=== PATIENT | female | born 1970 | race Caucasian/White ===

== ENCOUNTER → 2019-10-26 08:51 | Outpatient (BNVA) | payer MEDICARE, MEDICAID, SELFPAY | PROVIDERS: Family Provider Family Medicine; PCP Family Medicine; Visit Provider Anesthesiology | DX: G89.29 Other chronic pain (principal); M54.5 Low back pain; M25.511 Pain in right shoulder; M25.512 Pain in left shoulder; F17.210 Nicotine dependence, cigarettes, uncomplicated; Z79.891 Long term (current) use of opiate analgesic | CPT/HCPCS: 99214 ==

== ENCOUNTER → 2020-02-26 13:27 | Outpatient (BNVA) | payer MEDICARE, MEDICAID, SELFPAY | PROVIDERS: Family Provider Family Medicine; PCP Family Medicine; Visit Provider Anesthesiology | DX: G89.29 Other chronic pain (principal); M54.5 Low back pain; F17.210 Nicotine dependence, cigarettes, uncomplicated; Z79.891 Long term (current) use of opiate analgesic; Z71.6 Tobacco abuse counseling | CPT/HCPCS: 99214 ==

== ENCOUNTER → 2020-04-16 10:22 | Outpatient (BNVA) | payer MEDICARE, MEDICAID, SELFPAY | PROVIDERS: Family Provider Family Medicine; PCP Family Medicine; Visit Provider Nurse Practitioner | DX: G89.29 Other chronic pain (principal); M54.41 Lumbago with sciatica, right side; M54.42 Lumbago with sciatica, left side; F17.210 Nicotine dependence, cigarettes, uncomplicated; Z79.891 Long term (current) use of opiate analgesic; Z71.6 Tobacco abuse counseling | CPT/HCPCS: 99213 ==

== ENCOUNTER → 2020-06-27 09:13 | Outpatient (BNVA) | payer MEDICARE, MEDICAID, SELFPAY | PROVIDERS: Family Provider Family Medicine; PCP Family Medicine; Visit Provider Nurse Practitioner | DX: G89.29 Other chronic pain (principal); M54.42 Lumbago with sciatica, left side; M54.41 Lumbago with sciatica, right side; F17.210 Nicotine dependence, cigarettes, uncomplicated; Z79.891 Long term (current) use of opiate analgesic; Z71.6 Tobacco abuse counseling | CPT/HCPCS: 99213 ==

== ENCOUNTER → 2020-08-26 13:35 | Outpatient (BNVA) | payer MEDICARE, MEDICAID, SELFPAY | PROVIDERS: Family Provider Family Medicine; PCP Family Medicine; Visit Provider Anesthesiology | DX: G89.29 Other chronic pain (principal); M54.5 Low back pain; F17.210 Nicotine dependence, cigarettes, uncomplicated; Z79.891 Long term (current) use of opiate analgesic; Z71.6 Tobacco abuse counseling | CPT/HCPCS: 99213; 99214 ==

== ENCOUNTER → 2020-10-23 13:48 | Outpatient (BNVA) | payer MEDICARE, MEDICAID, SELFPAY | PROVIDERS: Family Provider Family Medicine; PCP Family Medicine; Visit Provider Nurse Practitioner | DX: G89.29 Other chronic pain (principal); M54.5 Low back pain; F17.210 Nicotine dependence, cigarettes, uncomplicated; Z79.891 Long term (current) use of opiate analgesic; Z71.6 Tobacco abuse counseling | CPT/HCPCS: 99212; 99214 ==

== ENCOUNTER → 2020-12-26 13:17 | Outpatient (BNVA) | payer MEDICARE, MEDICAID, SELFPAY | PROVIDERS: Family Provider Family Medicine; PCP Family Medicine; Visit Provider Anesthesiology | DX: G89.29 Other chronic pain (principal); M54.5 Low back pain; F17.210 Nicotine dependence, cigarettes, uncomplicated; Z79.891 Long term (current) use of opiate analgesic | CPT/HCPCS: 99213 ==

== ENCOUNTER → 2021-02-25 11:12 | Outpatient (BNVA) | payer MEDICARE, MEDICAID, SELFPAY | PROVIDERS: Family Provider Family Medicine; PCP Family Medicine; Visit Provider Anesthesiology | DX: G89.29 Other chronic pain (principal); M54.5 Low back pain; F17.210 Nicotine dependence, cigarettes, uncomplicated; Z79.891 Long term (current) use of opiate analgesic | CPT/HCPCS: 99213 ==

== ENCOUNTER → 2021-04-28 13:21 | Outpatient (BNVA) | payer MEDICARE, MEDICAID, SELFPAY | PROVIDERS: Family Provider Family Medicine; PCP Family Medicine; Visit Provider Nurse Practitioner | DX: G89.29 Other chronic pain (principal); M54.5 Low back pain; F17.210 Nicotine dependence, cigarettes, uncomplicated; Z79.891 Long term (current) use of opiate analgesic; Z71.6 Tobacco abuse counseling | CPT/HCPCS: 99213 ==

== ENCOUNTER → 2021-06-26 12:47 | Outpatient (BNVA) | payer MEDICARE, MEDICAID, SELFPAY | PROVIDERS: Family Provider Family Medicine; PCP Family Medicine; Visit Provider Nurse Practitioner | DX: G89.29 Other chronic pain (principal); M54.50 Low back pain, unspecified; F17.210 Nicotine dependence, cigarettes, uncomplicated; Z79.891 Long term (current) use of opiate analgesic; Z71.6 Tobacco abuse counseling | CPT/HCPCS: 99213; 99214 ==

== ENCOUNTER → 2021-08-27 12:46 | Outpatient (BNVA) | payer MEDICARE, MEDICAID, SELFPAY | PROVIDERS: Family Provider Family Medicine; PCP Family Medicine; Visit Provider Anesthesiology | DX: Z02.89 Encounter for other administrative examinations (principal); G89.29 Other chronic pain; M54.50 Low back pain, unspecified; F17.200 Nicotine dependence, unspecified, uncomplicated; Z79.891 Long term (current) use of opiate analgesic | CPT/HCPCS: 99213 ==

== ENCOUNTER → 2021-11-03 12:49 | Outpatient (BNVA) | payer MEDICARE, MEDICAID, SELFPAY | PROVIDERS: Family Provider Family Medicine; PCP Family Medicine; Visit Provider Anesthesiology | DX: G89.29 Other chronic pain (principal); M54.50 Low back pain, unspecified; F17.210 Nicotine dependence, cigarettes, uncomplicated; Z79.891 Long term (current) use of opiate analgesic | CPT/HCPCS: 99213 ==

== ENCOUNTER → 2021-11-17 14:50 | Outpatient (BNVA) | payer MEDICARE, MEDICAID, SELFPAY | PROVIDERS: Family Provider Family Medicine; PCP Family Medicine; Visit Provider Nurse Practitioner Family | DX: Z20.822 Contact with and (suspected) exposure to COVID-19 (principal) | CPT/HCPCS: 87426 ==

== ENCOUNTER 2022-02-18 13:19 | Outpatient (CLI) | payer MEDICARE, MEDICAID, SELFPAY ==
--- NOTE | 2022-02-18 13:29 | XR_ITS ---
WS: [id number] Exam: XR lumbar spine 2-3V* [id number] Date/Time of Exam: 02/18/2022 1:31 PM Reason For Exam: DDD LUMBAR comparison 03/06/2014 No acute fracture or dislocation. Disc spaces are preserved. Mild spondylosis. Posterior elements are intact. Slight levoscoliosis. Mild facet DJD from L3 to S1. XR/XR lumbar spine 2-3V* [id number] IMPRESSION: 1. Facet DJD from L3 to S1. No fracture or malalignment. Mild scoliosis.
--- NOTE | 2022-02-18 13:29 | XR_ITS ---
WS: [id number] Exam: XR thoracic spine 3V* [id number] Date/Time of Exam: 02/18/2022 1:31 PM Reason For Exam: DDD THORACIC No fracture or dislocation noted. Minimal spondylosis. No scoliosis. Normal paraspinal soft tissues. XR/XR thoracic spine 3V* [id number] IMPRESSION: 1. No acute fracture or malalignment. Minimal degenerative change.
== END 2022-02-18 13:20 | disposition home or self-care (01) ==
LOC: RAD 13:26
PROVIDERS: Family Provider Family Medicine; PCP Family Medicine; Visit Provider General Practice
DX: M51.34 Other intervertebral disc degeneration, thoracic region (principal); M51.36 Other intervertebral disc degeneration, lumbar region; M47.817 Spondylosis without myelopathy or radiculopathy, lumbosacral region
CPT/HCPCS: 72072; 72100

== ENCOUNTER 2022-08-02 18:16 | Emergency (ER) | payer MEDICARE, MEDICAID, SELFPAY ==
[2022-08-02] VITALS (9 sets, daily range): BP systolic 140–159; BP diastolic 87–113; PULSE 90; RESP 18; TEMP 36.5; O2SAT 96–97
--- NOTE | 2022-08-02 18:47 | XRR_ITS ---
PROCEDURE INFORMATION: Exam: XR Chest Exam date and time: 08/02/2022 8:13 PM Age: 51 years old Clinical indication: Cough and shortness of breath; Prior surgery; Surgery type: RT rotator cuff. Bilat breast reduction; Patient HX: Cough with SOB. ; Additional info: Dyspnea TECHNIQUE: Imaging protocol: Radiologic exam of the chest. Views: 1 view. COMPARISON: CR XR chest 1V [id number] 09/14/2016 8:19 PM FINDINGS: Lungs: Unremarkable. No consolidation. Pleural spaces: Unremarkable. No pleural effusion. No pneumothorax. Heart/Mediastinum: Unremarkable. No cardiomegaly. Bones/joints: Unremarkable. XR/XR chest 1V portable [id number] IMPRESSION: No acute findings.
--- NOTE | 2022-08-02 19:18 | ED_ITS ---
HPI - SOB/Dyspnea General: Chief Complaint: Shortness of Breath/Dyspnea Stated Complaint: SOB Time Seen by Provider: 08/02/22 19:17 History of Present Illness: HPI Narrative: Ms. Barber is a 51-year-old lady with history of tobaccoism, obesity, hypertension, hyperlipidemia presenting to the emergency department due to shortness of breath. Onset of symptoms was approximately 4 PM at subacute without known specific provoking factor. She identifies associated with high blood pressure but no significant chest discomfort or other typical cardiac features. Since time of onset symptoms have persisted. Intensity is moderate. Worse with exertion. No other specific changes in health, exacerbating, or alleviating factors identified. Onset (ago): hour(s) Timing: constant Severity: moderate Exacerbating factors: exertion Relieving factors: nothing Associated symptoms: Reports other Review of Systems General: Reports: 10 or more systems reviewed and unremarkable except in HPI and below PFSH ED PFSH: Medical History Chronic lumbosacral pain Encounter for long-term use of opiate analgesic Opioid contract exists Smoker Surgical History S/P appendectomy S/P bilateral breast reduction S/P cervical spinal fusion DR. REED C5-C6 2016 S/P hernia repair S/P rotator cuff repair RIGHT/11-27-2012/DR. GALDAMEZ S/P tubal ligation Family History Other Anesthesia complication Cancer Diabetes Heart disease Social History Smoking and tobacco status: current every day smoker cigarettes [ Other cigarette details: 5-6 CIGS DAILY] Second hand smoke exposure: Yes Alcohol intake: never Marital status: History of recent travel: No Female Reproductive History: Date of last menstrual period: 08/01/22 Physical Exam Const: COMMON NORMALS: alert GENERAL APPEARANCE: cooperative and well developed HENMT: COMMON NORMALS: normocephalic and atraumatic HEAD & SCALP: normocephalic and atraumatic Eye: COMMON NORMALS: conjunctivae normal CONJUNCTIVA: Yes conjunctivae normal SCLERA: sclerae normal Neck/C-Spine: COMMON NORMALS: supple GENERAL: Yes trachea midline Resp: COMMON NORMALS: clear to auscultation bilaterally EFFORT & INSPECTION: Yes able to speak in complete sentences AUSCULTATION: clear to auscultation bilaterally Cardio: COMMON NORMALS: regular rate and regular rhythm RATE: regular rate RHYTHM: regular rhythm GI: COMMON NORMALS: Soft to palpation PALPATION: Yes Soft to palpation and No Tenderness to palpation present (GI) PERCUSSION: normal to percussion Extremity: GENERAL: Yes normal exam except as noted and No edema Neuro: COMMON NORMALS: moves all extremities SENSORIUM/ORIENTATION: Yes alert and No Orientation impaired Psych: COMMON NORMALS: mental status grossly normal and Normal thought process present THOUGHT PROCESS: Normal thought process present Course Vital Signs: Vital signs: Vital Signs Temperature 97.7 F 08/02/22 18:36 Pulse Rate 90 08/02/22 18:36 Respiratory Rate 18 08/02/22 18:36 Blood Pressure 143/100 08/02/22 22:30 Pulse Oximetry 96 08/02/22 22:30 MDM - SOB/Dyspnea Medical Decision Making 52-year-old lady presenting with cough, shortness of breath, and high blood pressure. EKG notable for sinus rhythm, no STEMI Labs with leukocytosis and mild hemoconcentration. Mild dehydration on metabolic panel. Chest x-ray with no lobar consolidation or pneumothorax. COPD treatment ordered during ED course and patient had improvement. Patient has history of smoking and given description of symptoms and improvement with treatment most likely cause of patient symptoms is exacerbation of underlying lung disease. The results of ED evaluation were discussed with the patient including prescriptions and/or symptomatic cares (if applicable) including appropriate and responsible use, followup plan, and return precautions. The patient verbalized understanding and felt safe for discharge. Medical Records I reviewed the patient's medical records. Lab Data I reviewed the patient's lab results. : 08/02/22 19:34 08/02/22 19:34 Labs/Radiology: Radiology Impressions Chest X-Ray 08/02/22 18:47 IMPRESSION: No acute findings. Laboratory Results WBC 15.5 10^3/uL (4.0-10.0) H 08/02/22 19:34 RBC 5.44 10^6/uL (4.1-5.3) H 08/02/22 19:34 Hgb 15.7 g/dL (11.5-15.3) H 08/02/22 19:34 Hct 48.7 % (37.0-47.0) H 08/02/22 19:34 MCV 89.5 fl (81-99) 08/02/22 19:34 MCH 28.9 pg (28.0-34.0) 08/02/22 19:34 MCHC 32.2 g/dL (30.0-36.0) 08/02/22:34 RDW 13.2 % (12.1-15.1) 08/02/22:34 Plt Count 456 10^3/cmm (130-400) H 08/02/22 19:34 MPV 8.7 fL (7.4-10.4) 08/02/22 19:34 Neut % (Auto) 61.4 % 08/02/22 19:34 Lymph % (Auto) 27.0 % 08/02/22 19:34 Beaver % (Auto) 7.3 % 08/02/22:34 Eos % (Auto) 3.1 % 08/02/22:34 Baso % (Auto) 0.3 % 08/02/22 19:34 Neut # (Auto) 9.53 10^3/uL (1.8-7.7) H 08/02/22 19:34 Lymph # (Auto) 4.2 10^3/uL (0.8-4.8) 08/02/22 19:34 Beaver # (Auto) 1.1 10^3/uL (0.2-0.9) H 08/02/22:34 Eos # (Auto) 0.5 10^3/uL (0.0-0.8) 08/02/22:34 Baso # (Auto) 0.1 10^3/uL (0.0-0.1) 08/02/22:34 Nucleated RBC % (auto) 0 % 08/02/22:34 Nucleated RBCs # 0.0 /100WBC 08/02/22:34 D-Dimer 0.45 ug/mIFEU (0-0.59) 08/02/22 19:34 Sodium 135 mmol/L (136-145) L 08/02/22 19:34 Potassium 3.8 mmol/L (3.5-5.1) 08/02/22 19:34 Chloride 97 mmol/L (98-107) L 08/02/22 19:34 Carbon Dioxide 29 mmol/L (22-29) 08/02/22 19:34 Anion Gap 12.8 (5-19) 08/02/22 19:34 BUN 11 mg/dL (6-20) 08/02/22 19:34 Creatinine 0.7 mg/dL (0.5-0.9) 08/02/22 19:34 GFR Calculation 88.9 mL/min (90-130) L 08/02/22 19:34 Glucose 83 mg/dL (65-115) 08/02/22 19:34 Calculated Osmolality 279 mOsm/kg (285-295) L 08/02/22 19:34 Calcium 9.1 mg/dL (8.5-10.5) 08/02/22 19:34 Total Bilirubin 0.2 mg/dL (0.15-1.2) 08/02/22 19:34 AST 20 U/L (0-32) 08/02/22 19:34 ALT 30 U/L (0-33) 08/02/22 19:34 Alkaline Phosphatase 149 U/L (35-105) H 08/02/22 19:34 Troponin T Baseline 6 ng/L (0-10) 08/02/22 19:34 Troponin T 120 Minute 6.00 ng/L (0-10) 08/02/22 21:26 Delta Troponin T 0 ABS# (0-10) 08/02/22 21:26 NT-Pro-B Natriuret Pep 142 pg/mL (0-125) H 08/02/22 19:34 Total Protein 7.5 g/dL (6.6-8.7) 08/02/22 19:34 Albumin 3.9 g/dL (3.5-5.2) 08/02/22 19:34 Globulin 3.6 g/dL (1.3-4.6) 08/02/22 19:34 Discharge Plan Discharge Patient Disposition: Home Clinical Impression: Acute exacerbation of chronic obstructive airways disease Condition: Stable Prescriptions: New doxycycline hyclate 100 mg tablet 100 mg PO BID 10 Days Qty: 20 0RF No Action pravastatin 40 mg tablet 40 mg PO QDAY doxepin 150 mg capsule 150 mg PO QDAY tizanidine 4 mg tablet 4 mg PO TID PRN (Reason: muscle spasticity) Qty: 90 1RF clobetasol 0.05 % ointment 1 applic topical BID 14 Days Qty: 60 1RF Rx Instructions: to affected areas on feet no more than 2 weeks/mo alternating with triamcinolone triamcinolone acetonide 0.1 % ointment 1 applic topical BID Qty: 80 1RF Rx Instructions: Apply to affected area on feet no more than 2 weeks per month. Alternate with clobetasol Not for face sertraline 100 mg tablet 100 mg PO DAILY amlodipine 5 mg Tablet 5 mg PO DAILY trazodone 150 mg Tablet 150 mg PO BEDTIME metoprolol tartrate 50 mg Tablet 50 mg PO BID sertraline 50 mg tablet 50 mg PO DAILY risperidone 1 mg tablet 1 mg PO DAILY oxycodone 5 mg tablet 5 mg PO Q6H PRN (Reason: Pain) Discharge Orders: Discharge ED (Routine); Ordered 08/02/22 Ordered By: Felix Camarena Referrals: Luis Wray [Primary Care Provider] - Discharge Diet: Usual diet Discharge Activity: Increase activity as tolerated Patient Instructions: COPD (Chronic Obstructive Pulmonary Disease) (ED) Activity Restrictions/Additional Instructions: Thank you for visiting the emergency department. You were seen evaluated for shortness of breath. The most likely cause of your symptoms is related to exacerbation of underlying COPD. I will prescribe steroids and antibiotics. Please also use your albuterol inhaler 2 puffs every 4 hours for 24 hours followed by 2 puffs every 6 hours for 24 hours followed by 2 puffs every 8 hours for 24 hours and then return to the normal schedule. Please follow-up with a primary care provider. Return to the emergency department for worsening symptoms or anything else that you are concerned about a feel needs emergency department evaluation. Coding Level of Care Code ED [employer] Counselor for Keith Wallace
--- NOTE | 2022-08-02 19:36 | ECG_ITS ---
[facility] Test Date: 2022-08-02 Pat Name: Anabel Barber Department: Room: Gender: Female Evp Operations: : 1970 Requested By: Jose Cast Order Number: [id number] Kenny MD: Verena Levin M.D. Measurements Intervals [place] Rate: 79 P: 52 VA: 120 QRS: 61 QRSD: 85 T: 67 QT: 364 QTc: 418 Interpretive Statements SINUS RHYTHM Compared to ECG 09/14/2016 19:50:46 No significant changes Electronically Signed On 08-03-2022 12:01:19 SURGICAL CORSETIER by Verena Levin M.D. [id number]
[2022-08-02 19:59] LABS: Basophils # 0.1 10^3/uL (0.0-0.1); Basophils % 0.3 %; Eosinophils # 0.5 10^3/uL (0.0-0.8); Eosinophils % 3.1 %; Hematocrit 48.7 % (37.0-47.0); Hemoglobin 15.7 g/dL (11.5-15.3); Lymphocytes # 4.2 10^3/uL (0.8-4.8); Mean Corpuscular HGB Conc 32.2 g/dL (30.0-36.0); Mean Corpuscular Hemoglobin 28.9 pg (28.0-34.0); Mean Corpuscular Volume 89.5 fl (81-99); Mean Platelet Volume 8.7 fL (7.4-10.4); Monocytes # 1.1 10^3/uL (0.2-0.9); Monocytes % 7.3 %; Neutrophils # 9.53 10^3/uL (1.8-7.7); Neutrophils % 61.4 %; Nucleated Red Blood Cells % 0 %; Platelet Count 456 10^3/cmm (130-400); Red Blood Count 5.44 10^6/uL (4.1-5.3); Red Cell Distribution Width 13.2 % (12.1-15.1); White Blood Count 15.5 10^3/uL (4.0-10.0)
[2022-08-02] MEDS: ipratropium-albuterol 3 mL Neb INHALATION (20:04)
[2022-08-02 20:22] LABS: D Dimer 0.45 ug/mIFEU (0-0.59)
[2022-08-02 20:25] LABS: Troponin(5th) Baseline 6 ng/L (0-10)
[2022-08-02 20:34] LABS: Alanine Aminotransferase 30 U/L (0-33); Albumin Level 3.9 g/dL (3.5-5.2); Alkaline Phosphatase 149 U/L (35-105); Anion Gap 12.8 (5-19); Aspartate Amino Transferase 20 U/L (0-32); Blood Urea Nitrogen 11 mg/dL (6-20); Calcium 9.1 mg/dL (8.5-10.5); Carbon Dioxide 29 mmol/L (22-29); Chloride 97 mmol/L (98-107); Globulin 3.6 g/dL (1.3-4.6); Glomerular Filtration Rate 88.9 mL/min (90-130); Glucose 83 mg/dL (65-115); NT Pro B Type Natriuretic Pept 142 pg/mL (0-125); Osmolality Calculated 279 mOsm/kg (285-295); Potassium 3.8 mmol/L (3.5-5.1); Sodium 135 mmol/L (136-145); Total Bilirubin 0.2 mg/dL (0.15-1.2); Total Protein 7.5 g/dL (6.6-8.7)
--- NOTE | 2022-08-02 21:08 | ECG_ITS ---
[facility] Test Date: 2022-08-02 Pat Name: Anabel Barber Department: Room: Gender: Female Latent Print Examiner: : 1970 Requested By: Jose Cast Order Number: [id number] Kenny MD: Verena Levin M.D. Measurements Intervals [place] Rate: 79 P: 38 ND: 120 QRS: 48 QRSD: 88 T: 47 QT: 387 QTc: 445 Interpretive Statements SINUS RHYTHM Compared to ECG 08/02/2022 19:36:23 No significant changes Electronically Signed On 08-03-2022 12:10:46 FERTILIZER APPLICATOR by Verena Levin M.D. [id number]
[2022-08-02] MEDS: doxycycline 100 mg Tablet PO (22:05)
[2022-08-02 23:04] LABS: Troponin 5 2HR Delta 0 ABS# (0-10)
== END 2022-08-02 22:35 | disposition home or self-care (01) ==
PROVIDERS: Nurse Practitioner Family; Emergency Provider Emergency Medicine; PCP Family Medicine
DX: J44.1 Chronic obstructive pulmonary disease with (acute) exacerbation (principal); F17.210 Nicotine dependence, cigarettes, uncomplicated
CPT/HCPCS: 71045; 80053; 83880; 84484; 85025; 85378; 93005; 94640; 96374; 99285; J2930

== ENCOUNTER 2022-12-22 16:13 | Outpatient (CLI) | payer MEDICARE, MEDICAID, SELFPAY ==
--- NOTE | 2022-12-22 16:30 | CT_ITS ---
WS: [id number] CT CERVICAL SPINE TECHNIQUE: Noncontrast CT of the cervical spine with coronal and sagittal reformatted images. CLINICAL INFORMATION: CERVICAL FUSION SYNDROME COMPARISON: CT 2017 DLP: 496.[address] scans at [facility] use at least one of these dose optimization techniques: automated e xposure control; mA and/or kV adjustment per patient size (includes targeted exams where dose is matc hed to clinical indication); or iterative reconstruction. FINDINGS: Straightening of the normal cervical lordosis. ACDF C5-C6 with interbody fusion graft. Evidence of raciel ny bridging beyond the confines of the graft. This has matured compared to previous. Mastoid air cells are well aerated. Paranasal sinuses are well aerated. Small retention cysts in the maxillary sinuses. Normal posterior nasopharynx. Normal parapharyngeal fat. Bilateral enlarged cervic al lymph nodes nonspecific but may be reactive. Recommend clinical correlation. C2-C3: Normal. C3-C4: Mild facet arthropathy. Mild LEFT bony foraminal narrowing. C4-C5: Disc osteophytic ridging. Moderate LEFT and mild RIGHT bony foraminal narrowing. Spinal canal is patent. Mild facet arthropathy. C5-C6: Cervical fusion. Severe LEFT and no significant RIGHT bony foraminal narrowing. C6-C7: Spinal canal and foramen are patent. C7-T1: No significant disc bulging. Spinal canal and foramen are patent. CT/CT cervical spin wo con* [id number] IMPRESSION: 1. Postoperative changes ACDF C5-C6 with interbody fusion graft. Solid appeari ng interbody fusion graft has matured compared to previous. 2. Moderate LEFT C4-C5 and severe LEFT C5-C6 bony foraminal narrowing similar to previous. 3. Prominent bilateral cervical lymph nodes nonspecific but may be reactive. R ecommend clinical correlation.
== END 2022-12-22 16:14 | disposition home or self-care (01) ==
LOC: RAD 16:13
PROVIDERS: PCP Family Medicine; Visit Provider Specialist
DX: Q76.1 Klippel-Feil syndrome (principal)
CPT/HCPCS: 72125

== ENCOUNTER → 2023-02-16 12:49 | Outpatient (BNVA) | payer MEDICARE, MEDICAID, SELFPAY | PROVIDERS: PCP Family Medicine; Referring Provider Registered Nurse; Visit Provider Orthopaedic Surgery | DX: M70.61 Trochanteric bursitis, right hip (principal) | CPT/HCPCS: 99202 ==

== ENCOUNTER → 2023-03-01 13:14 | Outpatient (BNVA) | payer MEDICARE, MEDICAID, SELFPAY | PROVIDERS: PCP Family Medicine; Visit Provider Nurse Practitioner Family | DX: L24.4 Irritant contact dermatitis due to drugs in contact with skin (principal); L81.4 Other melanin hyperpigmentation; D22.5 Melanocytic nevi of trunk; Z71.89 Other specified counseling; L85.3 Xerosis cutis; L57.8 Other skin changes due to chronic exposure to nonionizing radiation; L30.1 Dyshidrosis [pompholyx] | CPT/HCPCS: 99214 ==

== ENCOUNTER 2023-04-19 13:34 | Outpatient (CLI) | payer MEDICARE, MEDICAID, SELFPAY ==
--- NOTE | 2023-04-19 14:13 | MM_ITS ---
WS: [id number] DIAGNOSTIC BILATERAL DIGITAL BREAST TOMOSYNTHESIS MAMMOGRAPHY WITH CAD LEFT breast ultrasound, limited. HISTORY: NEW LUMP LT AXILLA X 1 WEEK COMPARISON: 01/08/2016 TECHNIQUE: Bilateral craniocaudad, mediolateral oblique, and mediolateral views are submitted with to mosynthesis and SM. Spot compression LEFT MLO. Computer aided detection utilized. Breast composition: There are scattered areas of fibroglandular density. No breast masses are identif ied. Benign calcifications in the anterior RIGHT breast. Postoperative changes for bilateral mammopla sty is evident. Palpable marker in the LEFT axilla corresponds to a very superficial 4.7 mm subcutane ous nodule. Patient was unable to remain for diagnostic ultrasound to be performed today. MM/[place] [id number] IMPRESSION: BI-RADS: 0-Incomplete: Need additional imaging evaluation FOLLOW UP: Need Additional Imaging Recommendation: LEFT axillary ultrasound directed to the palpable abnormality.
== END 2023-04-19 13:35 | disposition home or self-care (01) ==
LOC: RAD 13:36 → MOBLMAM 13:39 → RAD 13:49
PROVIDERS: PCP Family Medicine; Visit Provider Nurse Practitioner Family
DX: N63.32 Unspecified lump in axillary tail of the left breast (principal)
CPT/HCPCS: 77062; G0279

== ENCOUNTER → 2023-05-19 14:04 | Outpatient (BNVA) | payer MEDICARE, MEDICAID, SELFPAY | PROVIDERS: PCP Family Medicine; Visit Provider Orthopaedic Surgery | DX: M54.2 Cervicalgia (principal); Z98.1 Arthrodesis status | CPT/HCPCS: 72050; 99204 ==

== ENCOUNTER → 2023-08-11 12:31 | Outpatient (BNVA) | payer MEDICARE, MEDICAID, SELFPAY | PROVIDERS: PCP Family Medicine; Referring Provider Family Medicine; Visit Provider Specialist | DX: G62.89 Other specified polyneuropathies (principal) | CPT/HCPCS: 95909; 95910 ==

== ENCOUNTER → 2023-09-07 15:07 | Outpatient (BNVA) | payer MEDICARE, MEDICAID, SELFPAY | PROVIDERS: PCP Family Medicine; Visit Provider Nurse Practitioner Family | DX: L23.9 Allergic contact dermatitis, unspecified cause (principal); D22.5 Melanocytic nevi of trunk; L85.3 Xerosis cutis; L57.8 Other skin changes due to chronic exposure to nonionizing radiation | CPT/HCPCS: 99213 ==

== ENCOUNTER → 2023-10-13 13:57 | Outpatient (BNVA) | payer MEDICARE, MEDICAID, SELFPAY | PROVIDERS: PCP Family Medicine; Visit Provider Orthopaedic Surgery | DX: M47.22 Other spondylosis with radiculopathy, cervical region | CPT/HCPCS: 99214 ==

== ENCOUNTER 2023-11-10 15:42 | Outpatient (CLI) | payer MEDICARE, MEDICAID, SELFPAY ==
--- NOTE | 2023-11-10 16:00 | MR_ITS ---
WS: [id number] MRI CERVICAL SPINE NONCONTRAST TECHNIQUE: Sagittal T1, T2 and STIR imaging. Axial T2, gradient, and fiesta imaging. CLINICAL INFORMATION: neck pain COMPARISON: MRI 2016 FINDINGS: Straightening of the normal cervical lordosis. ACDF C5-6. Cord signal is normal. Postoperative change s are new since the MRI in 2016. Hardware appears stable compared to CT 12/22/2022. C2-C3: Mild facet arthropathy. Spinal canal and foramen are patent. C3-C4: Mild LEFT bony foraminal narrowing. Mild facet arthropathy. Spinal canal is patent. C4-C5: Disc osteophyte complex with endplate ridging. Moderate LEFT and mild RIGHT bony foraminal margie rowing. Spinal canal is patent. Mild facet arthropathy. C5-C6: Postoperative changes ACDF. Severe LEFT and no significant RIGHT bony foraminal narrowing. C6-C7: Mild disc osteophytic ridging. Spinal canal and foramen are patent. C7-T1: Minimal disc bulging. Spinal canal and foramen are patent. Visualized brain stem structures: Normal. Prevertebral soft tissues: Normal. IMPRESSION: 1. Straightening of the normal cervical doses with postoperative changes ACDF C5-6 with interbody fu hollie graft. This appears stable since the prior CT. 2. No significant central canal stenosis. Cord signal is normal. 3. Moderate LEFT C4-5 and severe LEFT C5-C6 bony foraminal narrowing. 4. Mild LEFT C3-4 bony foraminal narrowing. 5. Mild disc bulging C4-5 with slight effacement of the ventral thecal sac. Spinal canal remains pat ent 6. No other acute findings.
== END 2023-11-10 15:43 | disposition home or self-care (01) ==
LOC: RAD 15:42
PROVIDERS: PCP Family Medicine; Visit Provider Orthopaedic Surgery
DX: M48.02 Spinal stenosis, cervical region (principal); M50.321 Other cervical disc degeneration at C4-C5 level; Z98.1 Arthrodesis status
CPT/HCPCS: 72141

== ENCOUNTER → 2023-11-22 13:01 | Outpatient (BNVA) | payer MEDICARE, MEDICAID, SELFPAY | PROVIDERS: PCP Family Medicine; Visit Provider Orthopaedic Surgery | DX: Z01.812 Encounter for preprocedural laboratory examination; M47.22 Other spondylosis with radiculopathy, cervical region; M48.02 Spinal stenosis, cervical region; M51.04 Intervertebral disc disorders with myelopathy, thoracic region; M50.321 Other cervical disc degeneration at C4-C5 level; M50.322 Other cervical disc degeneration at C5-C6 level | CPT/HCPCS: 36415; 80053; 81003; 85025; 99214 ==

== ENCOUNTER 2023-11-24 15:16 | Outpatient (CLI) | payer MEDICARE, MEDICAID, SELFPAY ==
--- NOTE | 2023-11-24 15:20 | USCV_ITS ---
Anabel Barber Age: 53 Gender: F : 1970 Exam Date: 11/24/2023 15:42 Ordering Phys: Luis Wray XX Technologist: HUNTER Exam Location: [facility] [place] Indication: TIA Risk Factors: Previous Vascular Surgery: Right Brachial BP: / Left Brachial BP: / Right Left Velocity (cm/s) Spectral Plaque Velocity (cm/s) Spectral Plaque Syst/Diast Broadening Syst/Diast Broadening 102.20/20.60 Prox CCA 121.90/ 29.10 91.20/ 23.00 Mid CCA 117.60/ 33.40 83.50/ 25.60 Distal CCA 108.90/ 31.30 58.50/ 16.50 Prox ICA 69.70 / 21.80 54.00/ 24.00 Mid ICA 68.50 / 27.30 66.90/ 28.30 Distal ICA 68.50 / 31.00 80.60 ECA 52.80 0.80 ICA/CCA 0.60 Antegrade Vertebral Antegrade 36.50/ 14.50 cm/s 46.00/ 21.70 cm/s Tri Subclavian Tri 124.5 131.9 0 0 FINDINGS Comparison: none available. No significant elevation of systolic or diastolic velocities. Waveforms are normal. No significant amount of calcified plaque or intimal thickening identified. CONCLUSIONS Normal carotid doppler ultrasound. Dr. Lulu Sotelo DO (Electronically Signed) Final Date: 25 November 2023 07:43 S
== END 2023-11-24 15:17 | disposition home or self-care (01) ==
LOC: RAD 15:17
PROVIDERS: PCP Family Medicine; Visit Provider Family Medicine
DX: R40.4 Transient alteration of awareness (principal); R56.9 Unspecified convulsions; R42 Dizziness and giddiness
CPT/HCPCS: 93880

== ENCOUNTER 2023-11-29 13:28 | Outpatient (CLI) | payer MEDICARE, MEDICAID, SELFPAY ==
--- NOTE | 2023-11-29 13:36 | MR_ITS ---
WS: [id number] MRI BRAIN WITHOUT CONTRAST HISTORY: TRANSIENT ALTERATION OF AWARENESS/SEIZURE LIKE ACTIVITY COMPARISON: 11/01/2006 TECHNIQUE: Diffusion imaging, multiplanar T1, T2 and FLAIR imaging obtained. No evidence for acute infarct or hemorrhage. Ziegler-white matter differentiation is normal. Very mild atrophy. No prior infarct or hemorrhage. Temporal lobes are poorly visualized due to motion artifact. No significant temporal lobe atrophy. Ventricles and extra-axial spaces are normal. No inferior displacement of cerebellar tonsils. The sella turcica and pituitary gland are unremarkabl e. Dural venous sinuses and [place] of [place] demonstrate no abnormality on this unenhanced studies. Paranasal sinuses: Mucous retention cysts within the maxillary sinus along with mild mucoperiosteal t hickening. No air-fluid levels. Mastoid air cells: Normal. Calvarium and scalp: Intact. IMPRESSION: 1. No significant atrophy or prior infarct. 2. No ischemia or hemorrhage. 3. Motion artifact obscuring temporal lobe evaluation. There is no evidence for significant temporal lobe atrophy or change in signal. 4. No hydrocephalus. 5. Bilateral maxillary sinus mucous retention cysts.
== END 2023-11-29 13:29 | disposition home or self-care (01) ==
LOC: RAD 13:28
PROVIDERS: PCP Family Medicine; Visit Provider Family Medicine
DX: R40.4 Transient alteration of awareness (principal); R56.9 Unspecified convulsions
CPT/HCPCS: 70551

== ENCOUNTER 2023-12-05 09:59 | Inpatient (IN) | payer MEDICARE, MEDICAID, SELFPAY ==
[2023-12-05] VITALS (26 sets, daily range): BP systolic 117–167; BP diastolic 65–102; PULSE 70–90; RESP 14–22; TEMP 36.2–37.3; O2SAT 90–97; BMI 39.2
--- NOTE | 2023-12-05 | XR_ITS ---
WS: [id number] C-ARM RADIOGRAPHS CERVICAL SPINE; 4 IMAGES HISTORY: SHIHKA PICS COMPARISON: None available. Intraoperative imaging during cervical spine surgery. Anterior and posterior hardware is evident. The posterior cervical fusion is new since 05/19/2023. IMPRESSION: Intraoperative imaging during posterior cervical fusion.
[2023-12-05 06:07] LABS: OR HCG Qualitative Urine Negative (Negative)
[2023-12-05] MEDS: sodium chloride 0.9% 1,000 ML 30 ML IV (06:09)
--- NOTE | 2023-12-05 06:33 | W.PM.OPSUD ---
Surgery/Procedure H&P Update DATE OF PROCEDURE: December 05, 2023 DATE H&P PERFORMED: 12/21/23 H&P UPDATE INFORMATION: I have reviewed H&P completed within last 30 days, I have examined patient prior to procedure and No changes to prior documentation PREOP DIAGNOSIS: Cervical spondylosis with radiculopathy PLANNED PROCEDURE: Operation Date: 12/05/23 07:00 Proposed Procedures p Cervical Posterior Fusion(Not Applicable) - Pino An DO s Cervical Laminectomy(Not Applicable) - Pino An DO
--- NOTE | 2023-12-05 06:46 | ANES.PREANE2 ---
Pre-Anesthetic Assessment Height/Weight: Height 1.68 m Weight 110.223 kg Temp Pulse Resp BP Pulse Ox O2 Del Method 97.1 F L 73 16 158/102 95 Room Air 12/05/23 06:00 12/05/23 06:00 12/05/23 06:00 12/05/23 06:00 12/05/23 06:00 12/05/23 06:00 Preop Diagnosis: Cervical spondylosis with radiculopathy Operation Date: 12/05/23 07:00 Proposed Procedures p Cervical Posterior Fusion(Not Applicable) - Pino An DO s Cervical Laminectomy(Not Applicable) - Pino An DO Familial anesthetic complications: None Was Beta Anisha taken within 24 hours: Yes Last intake: Intake Last Liquid Date 12/04/23 Last Liquid Time 22:00 Last Solid Date 12/04/23 Last Solid Time 19:00 Social Tobacco and No alcohol encouragd smoking cessation an f/u w/ PCP for futher guidace Exam alert, oriented x 3, clear to auscultation bilaterally and regular rate & rhythm Airway Mallampati: Class IV Dentition: other (missing) Comments: Comments: receding jaw Pulmonary Sleep Apnea CV/HEM Hypertension GI Gastroesophageal Reflux Disease Metabolic Hyperlipidemia Anesthetic Plan ASA status: 3 Anesthesia: General Risk of > 500 ml blood loss (7ml/kg in children): No Medications/Allergies Home Medications Medication Instructions Recorded Confirmed Last Taken Type doxepin 150 mg capsule 150 mg PO QDAY 10/22/19 12/05/23 12/04/23 History pravastatin 40 mg tablet 40 mg PO QDAY 10/22/19 12/05/23 12/04/23 History amlodipine 5 mg tablet 5 mg PO DAILY 08/02/22 12/05/23 12/05/23 05:00 History metoprolol tartrate 50 mg tablet 50 mg PO BID 08/02/22 12/05/23 12/04/23 05:00 History oxycodone 5 mg tablet 5 mg PO Q6H PRN Pain 08/02/22 12/05/23 12/04/23 History risperidone 1 mg tablet 1 mg PO DAILY 08/02/22 12/05/23 12/04/23 History sertraline 100 mg tablet 100 mg PO DAILY 08/02/22 12/05/23 12/04/23 History trazodone 150 mg tablet 150 mg PO BEDTIME 08/02/22 12/05/23 12/04/23 History CPAP 12/09/22 11/22/23 Unknown History famotidine 20 mg tablet (Pepcid) 20 mg PO DAILY 12/09/22 12/05/23 12/04/23 History gabapentin 300 mg capsule 300 mg PO DAILY 12/09/22 12/05/23 12/04/23 History sumatriptan succinate 25 mg tablet 25 mg PO Q2H PRN Headache 12/09/22 12/02/23 Unknown History (Imitrex) terbinafine HCl 250 mg tablet 250 mg PO DAILY 12/09/22 12/05/23 12/04/23 History pregabalin 75 mg capsule 75 mg PO BID 12/01/23 12/05/23 12/04/23 History Allergies Allergy/AdvReac Type Severity Reaction Status Date / Time butalbital Allergy ADR/ALGY-Hy Verified 12/05/23 05:52 potension nitrofurantoin Allergy ALGY-Rash Verified 12/05/23 05:52 [From Macrodantin] nystatin Allergy ALGY-Hives Verified 12/05/23 05:52 Penicillins Allergy ALGY-Hives Verified 12/05/23 05:52 Sulfa (Sulfonamide Allergy ALGY-Hives Verified 12/05/23 05:52 Antibiotics) Current Medications Generic Name Dose Route Start Last Admin Trade Name Freq PRN Reason Stop Dose Admin Sodium Chloride 1,000 mls @ 30 mls/hr 12/05/23 05:45 12/05/23 06:09 Sodium Chloride 0.9% IV 12/06/23 05:44 30 mls/hr .Q24H BUDDY Administration PFSH Anesthesia Medical History Opioid contract exists Smoker Chronic lumbosacral pain Encounter for long-term use of opiate analgesic Surgical History S/P bilateral breast reduction S/P rotator cuff repair RIGHT/11-27-2012/DR. GALDAMEZ S/P appendectomy S/P cervical spinal fusion DR. REED C5-C6 2017 S/P tubal ligation S/P hernia repair Family History Other Diabetes Heart disease Denies family history of Colon cancer Ovarian cancer Hypercholesteremia Breast cancer Hypertension Uterine cancer Thyroid disease Stroke Social History Second hand smoke exposure: Yes Alcohol intake: never Substance/Drug Use: never Marital status: Data Anesthesia Cardiac Studies: No Data to Display
[2023-12-05] MEDS: ceFAZolin 2,000 MG in sodium chloride 0.9% (plus) 50 ML 100 MG IV ×2 (07:03→14:59)
[2023-12-05] MEDS: lidocaine-epi 1% 20 mL INJ INJECTION (08:09)
[2023-12-05] MEDS: vancomycin 1,000 MG SDV 1000 MG XX (08:10)
--- NOTE | 2023-12-05 09:14 | PM.OP ---
Operative Report Date of procedure: December 05, 2023 Pre-op diagnosis: Cervical spondylosis with radiculopathy Post-op diagnosis: same Procedure done: 1. C4-C7 posterior spine fusion 2. C4-C7 posterior spine instrumentation 3. C4/5 laminectomy with partial facetectomies 4. C5/6 laminectomy with partial facetectomies 5. C6/7 laminectomy with partial facetectomies 6. use of allograft 7. use of autograft Surgeon: Pino An DO Estimated blood loss (mL): 25 Procedure: 1. C4-C7 posterior spine fusion 2. C4-C7 posterior spine instrumentation 3. C4/5 laminectomy with partial facetectomies 4. C5/6 laminectomy with partial facetectomies 5. C6/7 laminectomy with partial facetectomies 6. use of allograft 7. use of autograft Patient is brought to the procedure after going anesthesia placed in the prone position. Eyes appear well-padded. Patient's prepped draped normal sterile fashion. Neuromonitoring was used throughout the entire case. Skin incision made over the C4-C7 level. Subperiosteal dissection was made at the lateral masses of C4-C7 bilaterally. Retractors were placed. Extension was brought to placing the lateral mass screws. This was done by using a high-speed bur. Next a drill was used to drill to 12 mm. Pedicle feeler was used to ensure that the drill hole was in good position and no breaches. And then the screw was placed a zero 14 mm screws were placed. This was done at C4 bilaterally, C5 bilaterally, C6 bilaterally and C7 bilaterally. Rods were attached from C4-C7 with the caps. And then the caps were torqued into position. Next tension was brought to performing the laminectomies. The high-speed bur was used to cut through the lamina of C6 bilaterally, C5 bilaterally, and partial of C4 bilaterally. Lamina is removed. Medial aspect of facet joints were opened up bilaterally. Used this was done using the Kerrison rongeur this was done at C4-5 bilaterally, C5-6 bilaterally, and C6-7 bilaterally. Next attention was brought to specifically the C6 nerve root. Where the patient had a previous C5-6 discectomy. There appeared to be disc herniation more lateral. The nerve root was traced out completely in order to facilitate that the nerve is adequately decompressed. Wounds were then irrigated vancomycin powder was placed deep drain was not used because there is minimal bleeding. Wound was closed in layered fashion with 0 Vicryl 2-0 Vicryl Monocryl suture. Sterile dressings were applied patient transferred to PACU in stable condition.
--- NOTE | 2023-12-05 10:35 | ANE.PACU2 ---
Inpatient post-anesthesia follow up: Airway intact: Yes Vital signs: Temperature 97.6 F Pulse Rate 80 Respiratory Rate 16 Blood Pressure 134/85 Pulse Oximetry 94 Oxygen Delivery Me thod Nasal Cannula Oxygen Flow Rate 2 Fraction of Inspir ed Oxygen Hydration adequate: Yes Nausea and vomiting: No Pain level: 1 Mental status: Baseline
[2023-12-05] MEDS: lactated ringers 1,000 ML 90 ML IV (11:18)
[2023-12-05] MEDS: morphine 4 mg/mL SDV 1 mL 2 MG IVP (11:19)
[2023-12-05] MEDS: oxyCODONE 5 mg IR Tab/Cap PO ×2 (14:58→21:34)
[2023-12-05] MEDS: ketorolac 30 mg/mL INJ IVP (14:58)
[2023-12-05] MEDS: pregabalin 75 mg Capsule PO (16:55)
[2023-12-05] MEDS: docusate sodium 100 mg Capsule PO (16:55)
[2023-12-05] MEDS: metoprolol tartrate 50 mg Tablet PO (16:55)
[2023-12-05] MEDS: oxyCODONE-APAP 5-325 mg Tablet PO (16:55)
[2023-12-05] MEDS: atorvastatin 40 mg Tablet 20 MG PO (21:33)
[2023-12-05] MEDS: trazodone 150 mg Tablet PO (21:34)
[2023-12-05] MEDS: doxepin 50 mg Capsule 150 MG PO (21:34)
[2023-12-06] MEDS: lactated ringers 1,000 ML 90 ML IV (00:09)
[2023-12-06] MEDS: ceFAZolin 2,000 MG in sodium chloride 0.9% (plus) 50 ML 100 MG IV ×2 (00:10→06:05)
[2023-12-06 00:38] VITALS: RESP 16; O2SAT 93
[2023-12-06] MEDS: morphine 4 mg/mL SDV 1 mL 2 MG IVP (00:38)
[2023-12-06 03:52] VITALS: RESP 18; O2SAT 93
[2023-12-06] MEDS: oxyCODONE 5 mg IR Tab/Cap PO (03:52)
[2023-12-06] MEDS: ketorolac 30 mg/mL INJ IVP (03:54)
[2023-12-06 04:00] VITALS: BP 158/91; PULSE 76; RESP 16; TEMP 37; O2SAT 92
--- NOTE | 2023-12-06 07:44 | P.DS_ITS ---
Discharge Providers Date of Admission: 12/05/23 09:59 Date of Discharge: December 06, 2023 Attending Provider at Admission: Pino An DO Attending Provider at Discharge: Pino An DO Primary Care Provider: Luis Wray Reason for Visit Reason for Visit: M47.22 Physical Exam Narrative: Patient doing well no complaints. Plan to discharge her today Urinary Catheter Management: Vázquez: Cath Placed During This Visit: yes, but has since been removed by the nurse Urinary Catheter Date of Insertion: 12/05/23 Urinary Catheter Time of Insertion: 07:30 Date Urinary Catheter Removed: 12/05/23 Time Urinary Catheter Discontinued: 09:10 Discharge Data Studies Completed and Pending Pending at discharge Category Date Time Status C-arm Fluoroscopy [id number] Routine Exams 12/05/23 05:44 Ordered C-arm Fluoroscopy [id number] Routine Exams 12/05/23 06:34 Ordered Laboratory Results Urine HCG, Qual Negative (Negative) 12/05/23 05:49 Vitals Last Vital Signs Temp 98.6 F 12/06/23 04:00 Pulse 76 12/06/23 04:00 Resp 16 12/06/23 04:00 BP 158/91 12/06/23 04:00 Pulse Ox 92 12/06/23 04:00 O2 Del Method Room Air 12/05/23 16:00 O2 Flow Rate 2 12/05/23 11:19 Discharge Plan Discharge Patient Disposition: Home Condition: Stable Prescriptions: New oxycodone 5 mg tablet 5 mg PO Q4H PRN (Reason: pain) 7 Days Qty: 40 0RF Continued pravastatin 40 mg tablet 40 mg PO QDAY doxepin 150 mg capsule 150 mg PO QDAY pregabalin 75 mg capsule 75 mg PO BID sumatriptan succinate [Imitrex] 25 mg tablet 25 mg PO Q2H PRN (Reason: Headache) Rx Instructions: do not exceed 8 doses per 24 hrs terbinafine HCl 250 mg tablet 250 mg PO DAILY famotidine [Pepcid] 20 mg tablet 20 mg PO DAILY (DME) CPAP Device See Rx Instructions .Route Rx Instructions: As directed gabapentin 300 mg capsule 300 mg PO DAILY sertraline 100 mg tablet 100 mg PO DAILY amlodipine 5 mg Tablet 5 mg PO DAILY trazodone 150 mg Tablet 150 mg PO BEDTIME metoprolol tartrate 50 mg Tablet 50 mg PO BID risperidone 1 mg tablet 1 mg PO DAILY oxycodone 5 mg tablet 5 mg PO Q6H PRN (Reason: Pain) Discharge Orders: Discharge Order (Routine); Ordered 12/06/23 Ordered By: Pino An Discharge Diet: Advance as tolerated Discharge Activity: Limit activity as instructed Activity Restrictions/Additional Instructions: Thank you for choosing [facility] for your care! The following is a list of instructions, from your provider, to follow upon your discharge to ensure you have the optimal recovery from your recent injury or surgery. Anterior Cervical Discectomy and Fusion: What to Expect at Home Your Recovery Follow-up care is a yoo part of your treatment and safety. Be sure to make and go to all appointments, and call your doctor if you are having problems. If you do not already have a follow-up appointment made, call office in the next 1-3 days to make follow up appointment for 2 weeks at [phone]. It is also a good idea to know your test results and keep a list of the medicines you take. You can expect your neck to feel stiff or sore after surgery. This should improve in the weeks after surgery. But it may take 4 to 6 months for you to get better completely. You may have trouble sitting or standing in one position for very long and may need pain medicine in the weeks after your surgery. It may take 4 to 6 weeks to get back to your usual activities, but it may depend on what kind of surgery you had. Your throat will feel sore and it may be difficult to swallow for the first 3 days after your surgery. As long as you can get liquids down without difficulty, this should slowly improve, otherwise call our office or seek medical attention if it becomes increasingly difficult to get anything down including liquids. Avoid hot liquids for first 3-5 days. Soothing foods/liquids such as jello, pudding, and luke warm soups are recommended until swallowing improves. Staying elevated will also help, it's advised you keep propped up at while sleeping to help reduce the swelling. You may use an ice pack directly on your incision or around it on the front of your neck, using a cloth to protect your skin; and a heating pad to the back of your neck as needed. Do not use over the counter anti-inflammatory medications (Ibuprofen, Motrin, Aleve, Advil, etc) Taking these meds after having a fusion can delay fusion rates, we recommend you avoid them for the first 3 months after your surgery[address] Dr. An may advise you to work with a physical therapist to strengthen the muscles around your neck and back - this will be discussed at your follow - up appointments. The pain or numbness you were having in your arms before surgery should get better or go away completely. This care sheet gives you a general idea about how long it will take for you to recover. But each person recovers at a different pace. Follow the steps below to get better as quickly as possible. How can you care for yourself at home? Activity ? Rest when you feel tired. Getting enough sleep will help you recover. ? Try to walk each day. Start by walking a little more than you did the day before. Bit by bit, increase the amount you walk. Walking boosts blood flow and helps prevent pneumonia and constipation. Walking may also decrease your muscle soreness after surgery. ? No lifting anything that is more that 5 pounds. This may include heavy grocery bags and milk containers, a heavy briefcase or backpack, cat litter or dog food bags, a child, or a vacuum screen cleaner. ? Avoid strenuous activities, such as bicycle riding, jogging, weightlifting, or aerobic exercise, until your doctor says it is okay. ? Do not drive until your follow-up visit after your surgery, or until your doctor says it isokay. ? Avoid taking long car trips for 2 to 4 weeks after surgery. Your neck may become tired and painful from sitting too long in one position. ? You will probably need to take 4 to 6 weeks off from work. It depends on the type of work you do and how you feel. ? You may have sex as soon as you feel able, but avoid positions that put stress on your neck or cause pain. Diet ? You can eat your normal diet. If your stomach is upset, try bland, low-fat foods like plain rice, broiled chicken, toast, and yogurt ? Drink plenty of fluids. If you have kidney, heart, or liver disease and have to limit fluids, talk with your doctor before you increase the amount of fluids you drink. ? You may notice that your bowel movements are not regular right after your surgery. This is common. Try to avoid constipation and straining with bowel movements. You may want to take a fiber supplement every day. If you have not had a bowel movement after a couple of days, ask your doctor about taking a mild laxative. Medicines ? Take pain medicines exactly as directed. 1. If Dr. An gave you a prescription medicine for pain, take lt as prescribed. 2. Do not take two or more pain medicines at the same time unless the doctor told you to. Many pain medicines have acetaminophen, which is Tylenol. Too much acetaminophen {Tylenol) can be harmful. 3. If you think your pain pill is making you sick to your stomach: 4. Take your pills after meals (unless your doctor has told you not to). 5. Ask your Dr. for a different pain pill. Incisioncare ? Remove your dressing 48hours after your surgery. Ok to shower and get the incision wet. Do not overtly wash your incision. When done, pad dry, leave open to air thereafter. Avoid creams and ointments directly on your incision. ? Your sutures in the incision will dissolve and fall out on their own. ? Keep the area clean and dry. You may cover it with a gauze bandage if it weeps or rubs against clothing; if you choose to do this, change the dr nino everyday. Other instructions ? Use a heating pad, hot water bottle, or gentle massage on your back to reduce stiffness. Avoid putting heat on your incision When should you call for help? ? Call 911 anytime you think you may need emergency care. For example, call if: ? You pass out (lose consciousness). ? You have sudden chest pain and shortness of breath, or you cough upblood. ? You cannot swallow. ? You have severe pain in your neck or back. ? Call your Dr. or seek immediate medical care if: ? You have pain that does not get better after you take pain pills. ? You have loose stitches, or your incision comes open. ? You have blood or fluid draining from the incision. ? You have signs of infection, such as: 1. Increased pain, swelling, warmth, or redness. 2. Red streaks leading from the site. 3. Pus draining from the site. 4. Swollen lymph nodes in your neck or armpits. 5. A fever. ? You have severe pain in your arms. ? You have new or increased weakness or numbness in your arms. ? Watch closely for any changes in your health, and be sure to contact your doctor if: ? You do not have a bowel movement after taking a laxative. Discharge Attestations Time Spent in Discharge Care*: less than 30 min Quality Metrics Clinical Quality Measures [ No reported AMI, CVA or VTE this stay] Coding Level of Care Code Acute Code for Chg Fwd
[2023-12-06 09:19] VITALS: BP 133/89; PULSE 73; RESP 15; TEMP 36.8; O2SAT 92
--- NOTE | 2023-12-06 09:26 | PC.CHAP ---
Pastoral Care Encounter/Spiritual Assessment Type of Contact [] Declined invoice classification clerk visit [] Patient/Family/Request visit [] Outpatient visit [] Follow-up visit [] Physician referral [] Code/Alert [x] Routine visit [] Staff referral [] Actively dying [] Patient sleeping [] Family support [] [] Out of room [] Palliative care [] [] Receiving care in room [] Pre-surgical visit [] Trauma [] Long length of stay [] ICU visit [] Other: Relational/Emotional Strength [x] Patient feels connected with others/family/visitors/staff [] Distress [] Loneliness/isolation [] Abandonment Spirituality of Patient [x] Person of Isela [] Attends Oriental Orthodox of their Isela [x] Believes in Prayer [] Reads Bible or Zoroastrian materials [] There are Spiritual issues to be addressed Junior Net Developer Interventions [x] Prayer [] Active listening [] Non-anxious presence [x] Spiritual/emotional support [] Crisis/trauma care [] Spiritual counseling [] Bereavement support [] Provided bereavement packet [] Provided Bible/devotional materials [] Provided toy/stuffed animal, coloring book to patient or family member [] Provided Communion [] Anointing/[place] [] Salvation [x] Completed spiritual assessment [] Other: Impact on Illness or Injury [] Angry [] Fearful [] Anxious [] Often cries [] Exhaustion [] Unable to work [] Unable to attend catholic [] Unable to walk/stand [] Unable to read [] Unable to drive [] Unable to eat/drink [] Unable to sleep [] Unable to be with family [] Patient intubated [] Other: Summary Time spent with patient 5 min
[2023-12-06] MEDS: atorvastatin 40 mg Tablet 20 MG PO (10:25)
[2023-12-06] MEDS: pregabalin 75 mg Capsule PO (10:26)
[2023-12-06] MEDS: sertraline 100 mg Tablet PO (10:26)
[2023-12-06] MEDS: docusate sodium 100 mg Capsule PO (10:26)
[2023-12-06] MEDS: risperiDONE 1 mg Tablet PO (10:26)
[2023-12-06] MEDS: famotidine 20 mg Tablet PO (10:26)
[2023-12-06 10:27] VITALS: RESP 18
[2023-12-06] MEDS: oxyCODONE-APAP 5-325 mg Tablet PO (10:27)
[2023-12-06] MEDS: amlodipine 5 mg Tablet PO (10:27)
[2023-12-06] MEDS: metoprolol tartrate 50 mg Tablet PO (10:28)
[2023-12-06] MEDS: gabapentin 300 mg Capsule PO (10:29)
[2023-12-06 11:52] VITALS: RESP 18
== END 2023-12-06 11:27 | disposition home or self-care (01) | DRG 473 ==
LOC: MEDSURG 13:34
PROVIDERS: Admitting Provider Orthopaedic Surgery; PCP Family Medicine; Visit Provider Orthopaedic Surgery
PROC: 0RG20AJ Fusion of 2 or more Cervical Vertebral Joints with Interbody Fusion Device, Posterior Approach, Anterior Column, Open Approach (ICD-10-PCS; CPT 22600; principal; 2023-12-05 07:00)
PROC: 0RG20AJ Fusion of 2 or more Cervical Vertebral Joints with Interbody Fusion Device, Posterior Approach, Anterior Column, Open Approach (ICD-10-PCS; CPT 63001; 2023-12-05 07:00)
DX: M47.12 Other spondylosis with myelopathy, cervical region (principal); I10 Essential (primary) hypertension; E78.5 Hyperlipidemia, unspecified; K21.9 Gastro-esophageal reflux disease without esophagitis
CPT/HCPCS: 51702; 72040; 76000; 81025; 84703; 97110; 97161; C1713; J0330; J0690; J1100; J1170; J1885; J2250; J2270; J2405; J2704; J2710; J3010; J3370; J3490; J7030; J7120

== ENCOUNTER 2023-12-07 11:08 | Emergency (ER) | payer MEDICARE, MEDICAID, SELFPAY ==
[2023-12-07 11:11] VITALS: BP 149/118; PULSE 90; TEMP 37; O2SAT 94; BMI 39.2
--- NOTE | 2023-12-07 11:31 | CT_ITS ---
WS: [id number] CT CERVICAL SPINE WITH CONTRAST. HISTORY: post op infection, recent cervical fusion. Technique: All CT scans at [facility] use at least one of these dose optimization techniques: automated exposure control; mA and/or kV adjustment per patient size (includes targeted exams where dose is matched to clinical indication); or iterative reconstruction. DLP: 269.97 mGy.cm COMPARISON: 12/22/2022 Contrast: Omnipaque 350; 100 mL IV. Straightening of the normal cervical lordosis. Anterior cervical fusion at C5-6 with interbody spacer appears solid. New posterior fusion screws and vertical rods have been placed extending from C4-C7. No hardware fracture. Subcutaneous air infiltrating the soft tissues along the posterior cervical spine beginning at the le oswaldo of the skull base on the LEFT and extending inferiorly to the lower cervical spine. Air infiltrat ing into the paraspinal soft tissues and the muscles. Postoperative changes are identified. Cord comp ression. A small section of the cervical cord is being obscured by hardware artifact. Postoperative c hanges and laminectomy defects at C4, C5 and C6 are identified. There is no focal enhancing collectio n. Very few minimally prominent lymph nodes. The largest is 10 mm at level 2 on the LEFT. IMPRESSION: 1. Recent postoperative changes are noted in the cervical spine. There is air and soft tissue edema. No focal well-defined collection. It would be difficult to differentiate abscess versus normal posto perative changes. 2. No cord compression is evident. Portion of the cervical cord is being obscured by artifact from t he hardware. 3. New posterior fusion from C4-C7 with laminectomy defects. 4. Remote anterior cervical fusion hardware at C5-6 appears appropriate.
[2023-12-07] MEDS: iohexol 350 mg/mL 500 mL Btl (per mL) IV (11:51)
[2023-12-07 12:09] VITALS: BP 151/102; PULSE 81; RESP 18; O2SAT 94
[2023-12-07 12:36] LABS: Basophils % 0.3 %; Eosinophils # 0.4 10^3/uL (0.0-0.8); Eosinophils % 3.1 %; Hematocrit 45.1 % (36-47); Lymphocytes # 2.9 10^3/uL (0.8-4.8); Lymphocytes % 25.7 %; Mean Corpuscular HGB Conc 32.2 g/dL (30-55); Mean Corpuscular Hemoglobin 28.4 pg (27-33); Mean Corpuscular Volume 88.3 fl (85-98); Mean Platelet Volume 9.1 fL (7.4-10.4); Monocytes # 0.7 10^3/uL (0.2-0.9); Monocytes % 6.4 %; Neutrophils # 7.17 10^3/uL (1.8-7.7); Neutrophils % 64.1 %; Nucleated Red Blood Cells % 0 %; Platelet Count 324 10^3/cmm (157-399); Red Blood Count 5.11 10^6/uL (3.85-5.65); Red Cell Distribution Width 13.4 % (12.1-15.1); White Blood Count 11.18 10^3/uL (3.29-11.43)
--- NOTE | 2023-12-07 12:52 | W.ED.NECK ---
HPI - Neck Pain/Injury General: Chief Complaint: Neck Pain/Injury Stated Complaint: Neck Pain- Post surgery Time Seen by Provider: 12/07/23 11:16 Source: patient Mode of arrival: ambulatory History of Present Illness: 53-year-old female presents emergency room she is 2 days postop from a posterior cervical fusion. Overnight she began to have drainage from the wound she has not had any fever sweats or chills large amount of watery drainage overnight soaked her close bedding and the cervical collar she has in place. She still has some postop pain it is not significantly worsened. She was discharged yesterday from her surgery. No traumas or falls since being discharged MD complaint: neck pain Severity: moderate Quality: sharp Duration: constant Relieving factors: none Exacerbating factors: none Context: other (Recent surgery) Associated symptoms: Denies dysphagia, difficulty walking, dizziness, fevers/chills, headache(s), nausea, swollen glands, tingling or weakness Review of Systems Const: Denies: fever(s) or chills Card: Denies: chest pain Resp: Denies: dyspnea GI: Denies: nausea or dysphagia : Denies: dysuria, urinary frequency or urinary urgency Musc: Reports: neck pain; Denies: back pain Skin/Breast: Denies: rash Neuro: Denies: headache(s), difficulty walking or dizziness PFSH ED PFSH: Medical History Opioid contract exists Smoker Chronic lumbosacral pain Encounter for long-term use of opiate analgesic Surgical History S/P bilateral breast reduction S/P rotator cuff repair RIGHT/11-27-2012/DR. GALDAMEZ S/P appendectomy S/P cervical spinal fusion DR. REED C5-C6 2017 S/P tubal ligation S/P hernia repair Family History Other Diabetes Heart disease Denies family history of Colon cancer Ovarian cancer Hypercholesteremia Breast cancer Hypertension Uterine cancer Thyroid disease Stroke Social History Second hand smoke exposure: Yes Alcohol intake: never Substance/Drug Use: never Marital status: Physical Exam Const: GENERAL APPEARANCE: cooperative and comfortable ORIENTATION/CONSCIOUSNESS: Yes awake, Yes oriented to person, Yes oriented to place and Yes oriented to time HENMT: COMMON NORMALS: normocephalic, atraumatic and hearing grossly normal bilaterally HEAD & SCALP: normocephalic and atraumatic Neck/C-Spine: OTHER: No redness or erythema along the incision site. No significant dehiscence. No purulent drainage. Resp: COMMON NORMALS: normal respiratory effort, No retractions, No use of accessory muscles and clear to auscultation bilaterally AUSCULTATION: clear to auscultation bilaterally Cardio: COMMON NORMALS: regular rate, regular rhythm and No murmurs present (Cardio) RATE: regular rate RHYTHM: regular rhythm GI: COMMON NORMALS: Soft to palpation and No hepatosplenomegaly present AUSCULTATION: Yes normoactive bowel sounds PALPATION: Yes Soft to palpation, No Tenderness to palpation present (GI), No Guarding due to palpation present (GI) and Yes No hepatosplenomegaly present Extremity: COMMON NORMALS: normal to inspection, capillary refill normal, no clubbing, cyanosis or edema, no calf tenderness and no pedal edema Neuro: SENSORIUM/ORIENTATION: Yes oriented to person, Yes oriented to place and Yes oriented to time Skin: COMMON NORMALS: no rashes or lesions noted GENERAL SKIN EXAM: no rashes or lesions noted Course Vital Signs: Vital signs: Vital Signs Temperature 98.6 F 12/07/23 11:11 Pulse Rate 81 12/07/23 12:09 Respiratory Rate 18 12/07/23 12:09 Blood Pressure 151/102 12/07/23 12:09 Pulse Oximetry 94 12/07/23 12:09 Oxygen Delivery Me thod Room Air 12/07/23 12:09 MDM - Neck Pain/Injury Medical Decision Making CT does not show any sign of abscess no leukocytosis. There are some postop changes but no clear abscess formation on the CT. Discussed Dr. An. He will see the patient the next day or 2 and follow-up in the office. Reviewed findings with the patient discharged home continue same discharge instructions that she was given yesterday. Medical Records I reviewed the patient's medical records. Lab Data I reviewed the patient's lab results. 12/07/23 12:06 12/07/23 12:06 Laboratory Results WBC 11.18 10^3/uL (3.29-11.43) 12/07/23 12:06 RBC 5.11 10^6/uL (3.85-5.65) 12/07/23 12:06 Hgb 14.50 g/dL (11.27-16.99) 12/07/23 12:06 Hct 45.1 % (36-47) 12/07/23 12:06 MCV 88.3 fl (85-98) 12/07/23 12:06 MCH 28.4 pg (27-33) 12/07/23 12:06 MCHC 32.2 g/dL (30-55) 12/07/23 12:06 RDW 13.4 % (12.1-15.1) 12/07/23 12:06 Plt Count 324 10^3/cmm (157-399) 12/07/23 12:06 MPV 9.1 fL (7.4-10.4) 12/07/23 12:06 Neut % (Auto) 64.1 % 12/07/23 12:06 Lymph % (Auto) 25.7 % 12/07/23 12:06 Fallon % (Auto) 6.4 % 12/07/23 12:06 Eos % (Auto) 3.1 % 12/07/23 12:06 Baso % (Auto) 0.3 % 12/07/23 12:06 Neut # (Auto) 7.17 10^3/uL (1.8-7.7) 12/07/23 12:06 Lymph # (Auto) 2.9 10^3/uL (0.8-4.8) 12/07/23 12:06 Fallon # (Auto) 0.7 10^3/uL (0.2-0.9) 12/07/23 12:06 Eos # (Auto) 0.4 10^3/uL (0.0-0.8) 12/07/23 12:06 Baso # (Auto) 0.0 10^3/uL (0.0-0.1) 12/07/23 12:06 Nucleated RBC % (auto) 0 % 12/07/23 12:06 Nucleated RBCs # 0.0 /100WBC 12/07/23 12:06 All radiology interpretation(s) finalized by discharge Discharge Plan Discharge Condition: Stable Prescriptions: No Action pravastatin 40 mg tablet 40 mg PO QDAY doxepin 150 mg capsule 150 mg PO QDAY pregabalin 75 mg capsule 75 mg PO BID sumatriptan succinate [Imitrex] 25 mg tablet 25 mg PO Q2H PRN (Reason: Headache) Rx Instructions: do not exceed 8 doses per 24 hrs terbinafine HCl 250 mg tablet 250 mg PO DAILY famotidine [Pepcid] 20 mg tablet 20 mg PO DAILY (DME) CPAP Device See Rx Instructions .Route Rx Instructions: As directed gabapentin 300 mg capsule 300 mg PO DAILY oxycodone 5 mg tablet 5 mg PO Q4H PRN (Reason: pain) 7 Days Qty: 40 0RF sertraline 100 mg tablet 100 mg PO DAILY amlodipine 5 mg Tablet 5 mg PO DAILY trazodone 150 mg Tablet 150 mg PO BEDTIME metoprolol tartrate 50 mg Tablet 50 mg PO BID risperidone 1 mg tablet 1 mg PO DAILY albuterol sulfate 90 mcg/actuation HFA aerosol inhaler 2 puff INHALATION Q6H PRN (Reason: Shortness Of Breath Or Wheezing) melatonin 10 mg Tablet 10 mg PO BEDTIME Referrals: Luis Wray [Primary Care Provider] - Coding Level of Care Code ED Human Resources Hr Generalist for Keith Wallace
[2023-12-07 12:58] LABS: Alanine Aminotransferase 8 U/L (0-33); Albumin Level 3.7 g/dL (3.5-5.2); Alkaline Phosphatase 125 U/L (35-105); Anion Gap 14.5 (5-19); Aspartate Amino Transferase 12 U/L (0-32); Blood Urea Nitrogen 7 mg/dL (6-20); Calcium 8.6 mg/dL (8.5-10.5); Carbon Dioxide 29 mmol/L (22-29); Chloride 94 mmol/L (98-107); Creatinine Clr Calc Pharmacy 139.5133; Globulin 3.5 g/dL (1.3-4.6); Glomerular Filtration Rate 105.4 mL/min (90-130); Glucose 86 mg/dL (65-115); Osmolality Calculated 275 mOsm/kg (285-295); Potassium 3.5 mmol/L (3.5-5.1); Sodium 134 mmol/L (136-145); Total Bilirubin 0.4 mg/dL (0.15-1.2); Total Protein 7.2 g/dL (6.6-8.7)
[2023-12-07 13:11] VITALS: BP 141/91; PULSE 83; RESP 16; O2SAT 93
[2023-12-07 13:55] VITALS: BP 141/91; PULSE 83; RESP 16; TEMP 37; O2SAT 93
== END 2023-12-07 13:55 | disposition home or self-care (01) ==
PROVIDERS: Emergency Provider Family Medicine; PCP Family Medicine
DX: M54.2 Cervicalgia (principal); Z77.22 Contact with and (suspected) exposure to environmental tobacco smoke (acute) (chronic)
CPT/HCPCS: 36415; 72126; 80053; 85025; 99285; Q9967

== ENCOUNTER → 2023-12-08 13:38 | Outpatient (BNVA) | payer MEDICARE, MEDICAID, SELFPAY | PROVIDERS: PCP Family Medicine; Visit Provider Orthopaedic Surgery | DX: Z98.1 Arthrodesis status (principal) | CPT/HCPCS: 99024 ==

== ENCOUNTER → 2023-12-15 15:32 | Outpatient (BNVA) | payer MEDICARE, MEDICAID, SELFPAY | PROVIDERS: PCP Family Medicine; Visit Provider Orthopaedic Surgery | DX: M54.2 Cervicalgia (principal); Z98.1 Arthrodesis status | CPT/HCPCS: 99024 ==

== ENCOUNTER → 2024-01-10 14:14 | Outpatient (BNVA) | payer MEDICARE, MEDICAID, SELFPAY | PROVIDERS: PCP Family Medicine; Visit Provider Orthopaedic Surgery | DX: Z98.1 Arthrodesis status (principal) | CPT/HCPCS: 72040; 99024 ==

== ENCOUNTER → 2024-02-21 13:53 | Outpatient (BNVA) | payer MEDICARE, MEDICAID, SELFPAY | PROVIDERS: PCP Family Medicine; Visit Provider Orthopaedic Surgery | DX: Z98.1 Arthrodesis status (principal); M47.22 Other spondylosis with radiculopathy, cervical region | CPT/HCPCS: 72040; 99024 ==

== ENCOUNTER 2024-05-30 14:25 | Outpatient (CLI) | payer MEDICAID, OTHER, SELFPAY ==
--- NOTE | 2024-05-30 14:33 | MM_ITS ---
WS: [id number] BILATERAL 3D TOMOSYNTHESIS DIGITAL SCREENING MAMMOGRAPHY WITH CAD CLINICAL INFORMATION: SCREENING HISTORY: Screening mammogram. History of breast reduction COMPARISON: 2022 TECHNIQUE: Bilateral CC and MLO views. FINDINGS: Scattered fibroglandular densities bilaterally. No suspicious focal mass, asymmetry, calcifications, or architectural distortion. No evidence of malignancy. Benign dystrophic appearing calcifications RI GHT breast. MM/[place] [id number] IMPRESSION: DENSITY: There are scattered areas of fibroglandular density. BI-RADS: 2 - Benign. FOLLOW UP: 1 Year Follow-up Recommend return to annual screening mammography.
== END 2024-05-30 14:26 | disposition home or self-care (01) ==
LOC: RAD 14:26
PROVIDERS: PCP Family Medicine; Visit Provider Family Medicine
DX: Z12.31 Encounter for screening mammogram for malignant neoplasm of breast (principal); R92.323 Mammographic fibroglandular density, bilateral breasts; R92.1 Mammographic calcification found on diagnostic imaging of breast
CPT/HCPCS: 77063; 77067

== ENCOUNTER → 2024-11-27 11:12 | Outpatient (BNVA) | payer MEDICARE, MEDICAID, SELFPAY | PROVIDERS: Visit Provider Orthopaedic Surgery | DX: M25.512 Pain in left shoulder (principal) | CPT/HCPCS: 73030; 99204 ==

== ENCOUNTER → 2024-11-29 11:41 | Outpatient (BNVA) | payer MEDICARE, MEDICAID, SELFPAY | PROVIDERS: PCP Family Medicine; Visit Provider Orthopaedic Surgery | DX: M25.551 Pain in right hip (principal) | CPT/HCPCS: 73523; 99214 ==

== ENCOUNTER 2024-12-21 09:03 | Outpatient (CLI) | payer MEDICARE, MEDICAID, SELFPAY ==
--- NOTE | 2024-12-21 09:30 | MR_ITS ---
WS: [id number] MRI LEFT SHOULDER HISTORY: left shoulder pain COMPARISON: Radiograph 11/27/2024 TECHNIQUE: Multiplanar sequences of the shoulder joint are submitted. Moderate AC joint arthritis. Hypertrophic bone formation at the distal clavicle and adjacent acromion. Moderate subacromial and subdeltoid bursal fluid. Mild subacromial impingement. No os acromion. Normal position of the biceps tendon. Mildly high riding humeral head. Moderate articular surface tear measures 6 mm involving the distal supraspinatus tendon. Bursal surface of the tendon is intact. No retraction. Mild tendinopathy in the subscapularis tendon. Infraspinatus tendon is intact. Marrow edema over the greater tuberosity of the shoulder. Mild supraspinatus atrophy. No muscle edema. No labral tear identified. No adhesive capsulitis. MR/MR shoulder [facility] con* [id number] IMPRESSION: 1. 6 mm distal articular surface supraspinatus tendon tear. No retraction. 2. Mild supraspinatus muscle atrophy. 3. Moderate AC joint arthropathy. 4. No biceps tendon tear. 5. No labral tear.
== END 2024-12-21 09:04 | disposition home or self-care (01) ==
LOC: RAD 09:05
PROVIDERS: PCP Family Medicine; Visit Provider Orthopaedic Surgery
DX: M75.102 Unspecified rotator cuff tear or rupture of left shoulder, not specified as traumatic (principal); M62.512 Muscle wasting and atrophy, not elsewhere classified, left shoulder; M19.012 Primary osteoarthritis, left shoulder; M89.312 Hypertrophy of bone, left shoulder; R93.6 Abnormal findings on diagnostic imaging of limbs; M67.814 Other specified disorders of tendon, left shoulder
CPT/HCPCS: 73221

== ENCOUNTER → 2024-12-31 10:33 | Outpatient (BNVA) | payer MEDICARE, MEDICAID, SELFPAY | PROVIDERS: PCP Family Medicine; Visit Provider Orthopaedic Surgery | DX: Z01.818 Encounter for other preprocedural examination (principal); Z09 Encounter for follow-up examination after completed treatment for conditions other than malignant neoplasm; S46.012A Strain of muscle(s) and tendon(s) of the rotator cuff of left shoulder, initial encounter; X58.XXXA Exposure to other specified factors, initial encounter | CPT/HCPCS: 36415; 80053; 81001; 85025; 99213 ==

== ENCOUNTER 2025-01-24 06:30 | Outpatient (RCR) | payer MEDICARE, MEDICAID, SELFPAY | END 2025-02-23 23:59 | disposition home or self-care (01) | LOC: SPT 06:30 | PROVIDERS: PCP Family Medicine; Visit Provider Registered Nurse | DX: H81.10 Benign paroxysmal vertigo, unspecified ear (principal) | CPT/HCPCS: 95992; 97161 ==

== ENCOUNTER 2025-01-29 07:17 | Day surgery (SDC) | payer MEDICARE, MEDICAID, SELFPAY ==
[2025-01-29] VITALS (12 sets, daily range): BP systolic 120–139; BP diastolic 61–87; PULSE 58–67; RESP 15–18; TEMP 36.1–36.6; O2SAT 89–100; BMI 39.5
--- NOTE | 2025-01-29 08:08 | ANES.PREANE2 ---
Pre-Anesthetic Assessment Height/Weight: Height 5 ft 6 in Weight 245 lb Temp Pulse Resp BP Pulse Ox O2 Del Method 98 F 60 18 122/87 96 Room Air 01/29/25 08:04 01/29/25 08:04 01/29/25 08:04 01/29/25 08:04 01/29/25 08:04 01/29/25 08:04 Preop Diagnosis: Shoulder pain Operation Date: 01/29/25 09:20 Proposed Procedures p LEFT SHOULDER DIAGNOSTIC AND SURGICAL ARTHROSCOPY(Left) - Felix Waters MD s Rotator Cuff Repair - Arthroscopy(Left) - Felix Waters MD Was Beta Anisha taken within 24 hours: Yes Was Clonidine taken within 24 hours: N/A Social Tobacco and No alcohol Exam alert, oriented x 3 and regular rate & rhythm Decreased breath sounds bilaterally Airway Submandibular: within normal limits Cervical ROM: within normal limits Mallampati: Class III Comments: Comments: Edentulous, large neck circumference Anesthetic Plan ASA status: 3 Anesthesia: General and Regional (specify below) Other: No prior issues with anesthesia NPO since yesterday evening History of TRINIDAD on BiPAP in the evenings. Uses 3 L O2 at night Current smoker Hypertension on amlodipine History of long-term opioid use Labs reviewed from 12/31/2024, mild leukocytosis noted. Currently afebrile. Asymptomatic Plan for general anesthesia with preop nerve block Medications/Allergies Home Medications ?Medication ?Instructions ?Recorded ?Confirmed ?Last Taken ?Type doxepin 150 mg capsule 150 mg PO QDAY 10/22/19 01/28/25 01/27/25 History pravastatin 40 mg tablet 40 mg PO QDAY 10/22/19 01/28/25 01/28/25 History amlodipine 5 mg tablet 5 mg PO DAILY 08/02/22 01/28/25 01/29/25 History metoprolol tartrate 50 mg tablet 50 mg PO BID 08/02/22 01/28/25 01/29/25 History risperidone 1 mg tablet 1 mg PO DAILY 08/02/22 01/28/25 01/28/25 History sertraline 100 mg tablet (Zoloft) 100 mg PO DAILY 08/02/22 01/28/25 01/28/25 History trazodone 150 mg tablet 150 mg PO BEDTIME 08/02/22 01/28/25 01/27/25 History CPAP 12/09/22 01/28/25 Unknown History famotidine 20 mg tablet (Pepcid) 20 mg PO DAILY 12/09/22 01/28/25 01/27/25 History sumatriptan succinate 25 mg tablet 25 mg PO Q2H PRN Headache 12/09/22 01/28/25 2 Months Ago History (Imitrex) ~11/28/24 pregabalin 75 mg capsule 75 mg PO BID 12/01/23 01/28/25 01/28/25 History albuterol sulfate 90 mcg/actuation 2 puff inhalation Q6H PRN 12/07/23 01/28/25 1 Month Ago History aerosol inhaler Shortness Of Breath Or Wheezing ~12/29/24 melatonin 10 mg tablet 10 mg PO BEDTIME 12/07/23 01/28/25 01/27/25 History Allergies Allergy/AdvReac Type Severity Reaction Status Date / Time butalbital Allergy ADR/ALGY-Hy Verified 01/28/25 12:03 potension nitrofurantoin (From Allergy ALGY-Rash Verified 01/28/25 12:03 Macrodantin) nystatin Allergy ALGY-Hives Verified 01/28/25 12:03 Penicillins Allergy ALGY-Hives Verified 01/28/25 12:03 Sulfa (Sulfonamide Allergy ALGY-Hives Verified 01/28/25 12:03 Antibiotics) [facility] Anesthesia Medical History Opioid contract exists Smoker Chronic lumbosacral pain Encounter for long-term use of opiate analgesic Surgical History S/P bilateral breast reduction S/P rotator cuff repair RIGHT/11-27-2012/DR. GALDAMEZ S/P appendectomy S/P cervical spinal fusion DR. REED C5-C6 2016 S/P tubal ligation S/P hernia repair Family History Other Diabetes Heart disease Denies family history of Colon cancer Ovarian cancer Hypercholesteremia Breast cancer Hypertension Uterine cancer Thyroid disease Stroke Social History Smoking and tobacco/nicotine status: current every day tobacco/nicotine user Second hand smoke exposure: Yes Alcohol intake: never Substance/Drug Use: never Marital status: Female Reproductive History Date of last menstrual period: 12/29/24
[2025-01-29] MEDS: sodium chloride 0.9% 1,000 ML 30 ML IV (08:31)
--- NOTE | 2025-01-29 08:44 | ANES.PROC ---
Anesthesia Procedures Procedure/Date: 01/29/25 Nerve Block ^: Nerve Block 1: Main Anesthesia: other (100 mcg fentanyl) Time Out Performed: Yes Consent: requested by attending/covering physician and from patient Nerve block location: interscalene Anesthesia monitors applied: pulse oximetry, EKG, BP cuff and oxygen Nerve block position: supine Anesthetic Used: ropivicaine 0.5% Amount of anesthesia used (mL): 30 Ultrasound used to: recognize landmarks Nerve Stimulator Used?: Yes Interscalene/Femoral BLK: other needle (pjunk 4inch) Injection: neg aspiration of heme Patient Tolerated Procedure: well Complications: none Additional Comments: Decadron 4 mg added to block
--- NOTE | 2025-01-29 08:45 | PC.NURSE ---
0635: timeout and nerve block performed by raffi. Left shoulder block performed using 30 ml of 0.5 percent ropivicane using ultrasound guidance, patient was placed on O2 via nc at 2 lpm and placed on monitor
--- NOTE | 2025-01-29 08:49 | W.PM.OPSUD ---
Surgery/Procedure H&P Update DATE OF PROCEDURE: January 29, 2025 DATE H&P PERFORMED: 01/23/25 H&P UPDATE INFORMATION: I have reviewed H&P completed within last 30 days, I have examined patient prior to procedure, No changes to prior documentation and H&P to be scanned into chart PREOP DIAGNOSIS: Shoulder pain PLANNED PROCEDURE: Operation Date: 01/29/25 09:20 Proposed Procedures p LEFT SHOULDER DIAGNOSTIC AND SURGICAL ARTHROSCOPY(Left) - Felix Waters MD s Rotator Cuff Repair - Arthroscopy(Left) - Felix Waters MD
[2025-01-29] MEDS: scopolamine 1 mg PATCH 1 PATCH TRANSDERMA (09:00)
[2025-01-29] MEDS: clindamycin 600 MG/50 ML PREMIX 100 MG IV (09:19)
--- NOTE | 2025-01-29 10:46 | PM.OP ---
Operative Report Date of procedure: January 29, 2025 Surgeon: Felix Waters MD Procedure: Preop diagnosis: Left shoulder pain with labral damage and rotator cuff injury. Postop diagnosis: Degenerative changes of the biceps tendon, labral tearing, rotator cuff tear, acromial impingement Procedure: Diagnostic left shoulder arthroscopy with debridement of biceps tendon, labrum, rotator cuff tear. Mini open acromioplasty and rotator cuff repair Surgeon: Felix Waters MD Coil Machine Operator: MILLY Rowan's assistance was necessary for positioning of the patient, assistance during the procedure, wound closure, and transfer the patient to the PACU Anesthesia: General With preoperative scalene block EBL: 20 cc Complications: None Indications: Anabel is a 54-year-old white female who presented to the orthopedic clinics with debilitating left shoulder pain. She did not have 1 specific injury but continued pain problems difficulties with the shoulder. She failed all conservative measures and MRI demonstrated degenerative tearing of the labrum as well as a possible tear of the supraspinatus tendon nearly through and through. Also appeared to have no acromial impingement. Therefore at this time having failed all conservative measures she was offered a diagnostic shoulder arthroscopy with all indicated procedures. She is well aware of the possibility of a mini open rotator cuff repair as well as removal of portion of the acromion. All risk benefits treatment alternatives were discussed with her and she was agreeable to this at this time. Procedure: After obtaining consent patient had preoperative skin block administered in preop holding area. Then she was taken to the operating room placed the op table supine position general anesthetic administered. Once good anesthesia was achieved patient was placed in the beachchair position and secured to the bed and padded appropriately. Left upper extremity and shoulder prepped and draped usual fashion. After surgical timeout standard posterior portals made #11 blade camera Was placed within the glenohumeral joint line. Anterior working portal was also placed. Evaluation of the joint line itself demonstrated hypertrophic synovium and inflammation throughout. This is debrided partially with mechanical shaver. There is degenerative tearing of the anterior superior labrum up to the base of the biceps tendon. There are some mild fraying of the biceps tendon at its insertion on the inferior surface. This too was debrided mechanical shaver. Further evaluation of the shoulder demonstrated a tear just posterior to the biceps hiatus through and through of the rotator cuff. This is debrided with mechanical shaver also. At this point arthroscopy is abandon and many open procedures proceeded with period. Anterior lateral incision made off the tip of the acromion. Sharp dissection taken on down to subcutaneous tissues electrocautery used for hemostasis. Deltoid is removed from the anterior acromion and split down its fibers to expose the subacromial space. Once within the area of the bulbous acromion impinging upon the rotator cuff is identified. Therefore using a small microsagittal saw acromioplasty was done without much difficulty. Further evaluation found the tear of the supraspinatus tendon and thinning of the tear on back towards the infraspinatus. This then freshened up with a #15 blade. 2 juggernaut size 2.9 mm anchor was suture anchors were placed and drill holes equidistant apart. Each of these were double armed and therefore sutures were used in a horizontal mattress fashion to repair the rotator cuff back down to its insertion. Once was completed the shoulder was cleared with irrigation. Deltoid reapproximated 0 Vicryl [id number] sutures. Subcutaneous tissue reapproximated the 0 Vicryl interrupted sutures and skin was closed appropriately. Wound was then dressed with Xeroform gauze, sterile gauze dressing, ABD and adhesive tape. Patient placed abduction pillow and sling. Patient was then awakened transferred to the PACU in stable condition
--- NOTE | 2025-01-29 12:47 | ANE.PACU2 ---
Inpatient post-anesthesia follow up: Airway intact: Yes Vital signs: Temperature 97 F Pulse Rate 61 Respiratory Rate 17 Blood Pressure 136/70 Pulse Oximetry 93 Oxygen Delivery Me thod Room Air Oxygen Flow Rate 2 Fraction of Inspir ed Oxygen Hydration adequate: Yes Nausea and vomiting: No Pain level: 1 Mental status: Baseline
== END 2025-01-29 12:47 | disposition home or self-care (01) ==
PROVIDERS: Student in an Organized Health Care Education/Training Program; PCP Family Medicine; Visit Provider Orthopaedic Surgery
PROC: (CPT 29805; principal; 2025-01-29 09:00)
PROC: 0LQ24ZZ Repair Left Shoulder Tendon, Percutaneous Endoscopic Approach (ICD-10-PCS; CPT 29827; 2025-01-29 09:00)
DX: M67.922 Unspecified disorder of synovium and tendon, left upper arm (principal); M75.102 Unspecified rotator cuff tear or rupture of left shoulder, not specified as traumatic; M75.42 Impingement syndrome of left shoulder; M13.80 Other specified arthritis, unspecified site; J44.9 Chronic obstructive pulmonary disease, unspecified; I10 Essential (primary) hypertension; E78.5 Hyperlipidemia, unspecified; G47.33 Obstructive sleep apnea (adult) (pediatric); F17.200 Nicotine dependence, unspecified, uncomplicated; Z79.891 Long term (current) use of opiate analgesic; X58.XXXA Exposure to other specified factors, initial encounter
CPT/HCPCS: 23412; 23130; C1713; J1100; J2405; J2704; J3010; J3490; J7030; J9999

== ENCOUNTER → 2025-02-19 09:58 | Outpatient (BNVA) | payer MEDICARE, MEDICAID, SELFPAY | PROVIDERS: PCP Family Medicine; Visit Provider Orthopaedic Surgery | DX: Z98.890 Other specified postprocedural states (principal) | CPT/HCPCS: 99024 ==

== ENCOUNTER → 2025-03-26 08:49 | Outpatient (BNVA) | payer MEDICARE, MEDICAID, SELFPAY | PROVIDERS: PCP Family Medicine; Visit Provider Orthopaedic Surgery | DX: Z98.890 Other specified postprocedural states (principal) | CPT/HCPCS: 99024 ==

== ENCOUNTER → 2025-05-21 11:24 | Outpatient (BNVA) | payer MEDICARE, MEDICAID, SELFPAY | PROVIDERS: PCP Family Medicine; Visit Provider Orthopaedic Surgery | DX: Z98.890 Other specified postprocedural states (principal) | CPT/HCPCS: 99024 ==

== ENCOUNTER 2025-05-27 05:00 | Outpatient (RCR) | payer MEDICARE, MEDICAID, SELFPAY | END 2025-06-25 23:59 | disposition home or self-care (01) | LOC: SPT 05:00 | PROVIDERS: Visit Provider Orthopaedic Surgery | DX: M75.102 Unspecified rotator cuff tear or rupture of left shoulder, not specified as traumatic (principal); M25.512 Pain in left shoulder | CPT/HCPCS: 97110; 97140; 97161 ==

== ENCOUNTER → 2025-06-24 12:37 | Outpatient (BNVA) | payer MEDICARE, MEDICAID, SELFPAY | PROVIDERS: PCP Family Medicine; Visit Provider Orthopaedic Surgery | DX: Z98.890 Other specified postprocedural states (principal) | CPT/HCPCS: 99024 ==

== ENCOUNTER 2025-06-26 05:00 | Outpatient (RCR) | payer MEDICARE, MEDICAID, SELFPAY | END 2025-07-26 23:59 | disposition home or self-care (01) | LOC: SPT 05:00 | PROVIDERS: PCP Family Medicine; Visit Provider Orthopaedic Surgery | DX: M75.102 Unspecified rotator cuff tear or rupture of left shoulder, not specified as traumatic (principal) | CPT/HCPCS: 97110 ==

== ENCOUNTER → 2025-07-29 10:11 | Outpatient (BNVA) | payer MEDICARE, MEDICAID, SELFPAY | PROVIDERS: PCP Family Medicine; Visit Provider Orthopaedic Surgery | DX: Z98.890 Other specified postprocedural states (principal) | CPT/HCPCS: 99024 ==